=== PATIENT | female | born 1980 | race African-American/Black ===

== ENCOUNTER 2017-09-05 08:48 | Emergency (ER) | payer OTHER | END 2017-09-05 09:40 | disposition home or self-care (01) | LOC: ER 08:48 | DX: B34.9 Viral infection, unspecified (principal); J06.9 Acute upper respiratory infection, unspecified; G43.909 Migraine, unspecified, not intractable, without status migrainosus; Z88.0 Allergy status to penicillin; Z98.51 Tubal ligation status; Z88.5 Allergy status to narcotic agent; Z88.1 Allergy status to other antibiotic agents | CPT/HCPCS: 99283 ==

== ENCOUNTER 2017-09-10 08:03 | Emergency (ER) | payer OTHER ==
[2017-09-10] MEDS: ONDANSETRON ODT 4 MG TAB.RAPDIS. PO (08:34)
[2017-09-10] MEDS: HYDROcodone/CHLORPHEN POLIS 5 ML SUS.ER.12H PO (08:34)
== END 2017-09-10 09:59 | disposition home or self-care (01) ==
LOC: ER 09:59
DX: B34.9 Viral infection, unspecified (principal); G43.909 Migraine, unspecified, not intractable, without status migrainosus; Z88.5 Allergy status to narcotic agent; Z88.1 Allergy status to other antibiotic agents; Z88.0 Allergy status to penicillin; Z98.51 Tubal ligation status
CPT/HCPCS: 71046; 99284-25; Q0162

== ENCOUNTER 2018-01-06 00:56 | Emergency (ER) | payer OTHER | END 2018-01-06 01:25 | disposition home or self-care (01) | LOC: ER 00:56 | DX: L21.9 Seborrheic dermatitis, unspecified (principal); L25.9 Unspecified contact dermatitis, unspecified cause; Z88.0 Allergy status to penicillin; Z88.1 Allergy status to other antibiotic agents; Z88.5 Allergy status to narcotic agent | CPT/HCPCS: 99283 ==

== ENCOUNTER 2018-04-28 12:30 | Emergency (ER) | payer OTHER ==
[~2018-04-28] VITALS: Ht 160 cm; Wt 75.0 kg
[~2018-04-28 12:30] MED LIST: ACET325T9 PO; AMIT25TA PO; BENZ100C PO; HYDR15CR20 TP; HYDR5SUS PO; IBUP-1007 PO; KETO120S5 TP; NORG1TAB6 PO; ONDA4TAB10 SL; OSEL75CA PO; PROC5TAB14 PO; PROM25TA10 PO; SUMA25TA4 PO; [UNRECOGNIZED DRUG - CODE] PO
[2018-04-28 12:55] VITALS: BP 125/73
[2018-04-28] MEDS ORDERED: ONDA4TAB7 PO (13:12)
[2018-04-28] MEDS ORDERED: SUMA50TA3 PO (13:12)
--- NOTE | 2018-04-28 13:47 | PHYS DOC ---
Past Medical History Past Medical History: Migraines Past Surgical History: No Surgical History Additional Past Surgical Histo: D&C; oral surgery Alcohol Use: None Drug Use: None Adult General Chief Complaint Chief Complaint: PAIN CONTROL HPI HPI Patient is a 37 year old female who presents with migraine headaches. Patient has chronic migraine she takes amitriptyline for prevention however she has not been taking it recently because she gets home from work so late that she doesn' t want take it because she is worried she'll be groggy in the morning when she has to get up at 5 to take her kids to school. So she's had more frequent migraine headaches similar to usual priors mild to moderate in nature posterior throbbing radiates to the front has been using [id number] agents with minimal relief. Review of Systems Review of Systems Constitutional: Denies fever or chills [] Eyes: Denies change in visual acuity, redness, or eye pain [] HENT: Denies nasal congestion or sore throat [] GI: Denies abdominal pain, , vomiting, bloody stools or diarrhea [] : Denies dysuria or hematuria [] Integument: Denies rash or skin lesions [] Neurologic: Denies , focal weakness or sensory changes [] Endocrine: Denies polyuria or polydipsia [] All other systems were reviewed and found to be within normal limits, except as documented in this note. Allergies Allergies Allergies Coded Allergies Type Severity Reaction Last Updated Verified morphine Allergy Intermediate Vomiting 06/22/13 Yes Penicillins Allergy Unknown 06/22/13 Yes clindamycin Allergy Unknown 06/22/13 Yes Physical Exam Physical Exam Constitutional: Well developed, well nourished, no acute distress, non-toxic appearance. [] HENT: Normocephalic, atraumatic, bilateral external ears normal, oropharynx moist, no oral exudates, nose normal. [] Eyes: PERRLA, EOMI, conjunctiva normal, no discharge. [] Neck: Normal range of motion, no tenderness, supple, no stridor. [] Cardiovascular:Heart rate regular rhythm, no murmur [] Lungs & Thorax: Bilateral breath sounds clear to auscultation [] Abdomen: Bowel sounds normal, soft, no tenderness, no masses, no pulsatile masses. [] Skin: Warm, dry, no erythema, no rash. [] Back: No tenderness, no CVA tenderness. [] Extremities: No tenderness, no cyanosis, no clubbing, ROM intact, no edema. [] Neurologic: Alert and oriented X 3, normal motor function, normal sensory function, no focal deficits noted. [] Psychologic: Affect normal, judgement normal, mood normal. [] Current Patient Data Vital Signs Vital Signs Date Time Temp Pulse Resp B/P (MAP) Pulse Ox O2 Delivery O2 Flow Rate FiO2 04/28/18 12:55 98.0 102 18 125/73 (90) 98 Room Air 98.0 EKG EKG [] Radiology/Procedures Radiology/Procedures [] Course & Med Decision Making Course & Med Decision Making Pertinent Labs and Imaging studies reviewed. (See chart for details) []Well-appearing female requesting some better pain control that does make her as groggy for her migraines. Patient is neurologically intact in the emergency room . triptan cased nauseous in the past so we gave some Zofran as well. No red flags consistent with usual migraine pattern. Dragon Disclaimer Dragon Disclaimer This electronic medical record was generated, in whole or in part, using a voice recognition dictation system. Departure Departure Impression: Primary Impression: Migraine Disposition: 01 HOME, SELF-CARE Condition: STABLE Patient Instructions: Migraine Headache, [id number] Scripts Ondansetron Hcl (ZOFRAN) 4 Mg Tablet 4 MG PO PRN TID PRN for NAUSEA/VOMITING, #15 nausea/vomiting Prov: BRENDAN BORJA MD 04/28/18 Sumatriptan Succinate (IMITREX) 50 Mg Tablet 50 MG PO ONCE PRN for MIGRAINE HEADACHE, #10 TAB if no effect after two hours, may repeat dose x one. no more than two doses in a 24 hour period. Prov: BRENDAN BORJA MD 04/28/18 BRENDAN BORJA MD Apr 28, 2018 13:47
== END 2018-04-28 13:23 | disposition home or self-care (01) ==
LOC: ER 12:30
DX: G43.909 Migraine, unspecified, not intractable, without status migrainosus (principal); Z88.0 Allergy status to penicillin; Z88.1 Allergy status to other antibiotic agents; Z88.5 Allergy status to narcotic agent
CPT/HCPCS: 99283

== ENCOUNTER 2019-05-17 00:05 | Emergency (ER) | payer OTHER ==
[~2019-05-17] VITALS: Ht 160 cm; Wt 81.6 kg
[~2019-05-17 00:05] MED LIST changes: +ONDA4TAB7 PO; +SUMA50TA3 PO
[2019-05-17 00:26] VITALS: BP 137/88
[2019-05-17] MEDS ORDERED: AMOX1TAB61 PO (01:44)
[2019-05-17] MEDS ORDERED: CARB15DR23 EACH EAR (01:44)
[2019-05-17] MEDS ORDERED: MOME17SP NS (01:44)
--- NOTE | 2019-05-17 01:45 | PHYS DOC ---
Past Medical History Past Medical History: Migraines Past Surgical History: No Surgical History Additional Past Surgical Histo: D&C; oral surgery Alcohol Use: Occasionally Drug Use: None Adult General Chief Complaint Chief Complaint: EARACHE/EAR PAIN HPI HPI 38-year-old female presents to complaints of right ear pain, sore throat, nasal congestion, cough. She states is been ongoing times one day. Patient denies any fever. She denies any sick contacts. Nothing makes her pain worse, nothing makes her pain better. She states she's taken no medications [id number]. All other ROS negative unless documented in HPI Review of Systems Review of Systems See Above Allergies Allergies Allergies Coded Allergies Type Severity Reaction Last Updated Verified morphine Allergy Intermediate Vomiting 06/22/13 Yes Penicillins Allergy Unknown 06/22/13 Yes clindamycin Allergy Unknown 06/22/13 Yes Physical Exam Physical Exam See Above Constitutional: Well developed, well nourished, no acute distress, non-toxic appearance. [] HENT: Normocephalic, atraumatic, bilateral external ears normal - significant cerumen impaction bilaterally, oropharynx moist, no oral exudates, nose normal. [] Eyes: PERRLA, EOMI, conjunctiva normal, no discharge. [] Neck: Normal range of motion, no tenderness, supple, no stridor. [] Cardiovascular:Heart rate regular rhythm, no murmur [] Lungs & Thorax: Bilateral breath sounds clear to auscultation [] Abdomen: Bowel sounds normal, soft, no tenderness, no masses, no pulsatile masses. [] Skin: Warm, dry, no erythema, no rash. [] Extremities: No tenderness, no edema. [] Neurologic: Alert and oriented X 3, no focal deficits noted. [] Psychologic: Affect normal, judgement normal, mood normal. [] Current Patient Data Vital Signs Vital Signs Date Time Temp Pulse Resp B/P (MAP) Pulse Ox O2 Delivery O2 Flow Rate FiO2 05/17/19 00:26 98.1 89 18 137/88 (104) 97 Room Air 98.1 EKG EKG [] Radiology/Procedures Radiology/Procedures [] Course & Med Decision Making Course & Med Decision Making Pertinent Labs and Imaging studies reviewed. (See chart for details) []38-year-old female presents to complaints of right ear pain, sore throat, nasal congestion, cough. She states is been ongoing times one day. Patient denies any fever. She denies any sick contacts. Nothing makes her pain worse, nothing makes her pain better. She states she's taken no medications [id number]. Examination reveals evidence of bilateral cerumen impaction patient provided with debrox, nasonex, and augmentin Discussed use of OTC medications for symptomatic treatment Discussed return precautions Tylenol as needed for fever if develops Dragon Disclaimer Dragon Disclaimer This electronic medical record was generated, in whole or in part, using a voice recognition dictation system. Departure Departure Impression: Primary Impression: Ear pain Additional Impressions: Cerumen impaction Sore throat (viral) Disposition: HOME, SELF-CARE Condition: STABLE Referrals: UNKNOWN PCP NAME (PCP) Patient Instructions: Cerumen Impaction, Viral Pharyngitis Additional Instructions: Recommend follow up with PCP 3 - 5 days Return to the ER with worsening symptoms, intractable pain, fever, altered mental status Tylenol/Motrin as needed for pain Debrox drops ordered Augmentin rx provided Nasonex as needed Scripts Mometasone Furoate (NASONEX) 17 Gm Melvin.pump 2 SPRAY NS DAILY, #1 INHALER 5 Refills Prov: PRAFUL ROSS MD 05/17/19 Carbamide Peroxide (EAR WAX REMOVAL) 15 Ml Drops 5 DROP EACH EAR DAILY for 7 Days, #1 BOTTLE 0 Refills Prov: PRAFUL ROSS MD 05/17/19 Amoxicillin/Potassium Clav (AUGMENTIN 875-125 TABLET) 1 Each Tablet 1 TAB PO BID for 7 Days, #14 TAB 0 Refills Prov: PRAFUL ROSS MD 05/17/19 Problem Qualifiers Primary Impression: Ear pain Laterality: right Qualified Codes: H92.01 - Otalgia, right ear Additional Impressions: Cerumen impaction Laterality: right Qualified Codes: H61.21 - Impacted cerumen, right ear PRAFUL ROSS MD May 17, 2019 01:45
== END 2019-05-17 02:22 | disposition home or self-care (01) ==
LOC: ER 00:05
DX: H61.21 Impacted cerumen, right ear (principal); J02.8 Acute pharyngitis due to other specified organisms; B97.89 Other viral agents as the cause of diseases classified elsewhere; G43.909 Migraine, unspecified, not intractable, without status migrainosus; Z88.0 Allergy status to penicillin; Z88.1 Allergy status to other antibiotic agents; Z88.5 Allergy status to narcotic agent
CPT/HCPCS: 99283

== ENCOUNTER 2020-06-02 12:25 | Emergency (ER) | payer OTHER ==
[~2020-06-02] VITALS: Ht 160 cm; Wt 79.4 kg
[~2020-06-02 12:25] MED LIST changes: +AMOX1TAB61 PO; +CARB-171 EACH EAR; +MOME17SP NS
[2020-06-02 13:15] VITALS: BP 227/55
--- NOTE | 2020-06-02 13:34 | PHYS DOC ---
Past Medical History Past Medical History: Migraines Past Surgical History: No Surgical History Additional Past Surgical Histo: D&C; oral surgery Smoking Status: Current Every Day Smoker Alcohol Use: Occasionally Drug Use: None General Adult EDM: Chief Complaint: UPPER EXTREMITY PAIN HPI: HPI: Patient is a 39 year old female presents to the emergency room for evaluation of acute on chronic left shoulder pain. She reports she usually takes muscle relaxers to help with her shoulder pain but it is not helping recently. She denies any injury or recent trauma. She has pain with range of motion to the left shoulder. She denies chest pain or shortness of air, fever, or numbness or tingling. Review of Systems: Review of Systems: Constitutional: Denies fever or chills. [] Eyes: Denies change in visual acuity. [] HENT: Denies nasal congestion or sore throat. [] Respiratory: Denies cough or shortness of breath. [] Cardiovascular: Denies chest pain or edema. [] GI: Denies abdominal pain, nausea, vomiting, bloody stools or diarrhea. [] : Denies dysuria. [] Musculoskeletal: Reports left shoulder pain, decreased range of motion [] Integument: Denies rash. [] Neurologic: Denies headache, focal weakness or sensory changes. [] Endocrine: Denies polyuria or polydipsia. [] Lymphatic: Denies swollen glands. [] Psychiatric: Denies depression or anxiety. [] Heart Score: Risk Factors: Risk Factors: DM, Current or recent (<one month) smoker, HTN, HLP, family history of CAD, obesity. Risk Scores: Score 0 - 3: 2.5% MACE over next 6 weeks - Discharge Home Score 4 - 6: 20.3% MACE over next 6 weeks - Admit for Clinical Observation Score 7 - 10: 72.7% MACE over next 6 weeks - Early Invasive Strategies Current Medications: Current Medications Medications (Trade) Dose Ordered Sig/[facility] Start Time Stop Time Status Last Admin Dose Admin Ketorolac Tromethamine (Toradol 15mg Vial) 30 mg 1X ONCE 06/02/20 13:30 06/02/20 13:31 UNV Allergies: Allergies: Allergies Coded Allergies Type Severity Reaction Last Updated Verified morphine Allergy Intermediate Vomiting 06/22/13 Yes Penicillins Allergy Unknown 06/22/13 Yes clindamycin Allergy Unknown 06/22/13 Yes Physical Exam: PE: Constitutional: Well developed, well nourished, no acute distress, non-toxic appearance. [] HENT: Normocephalic, atraumatic, bilateral external ears normal, oropharynx moist, no oral exudates, nose normal. [] Eyes: PERRLA, EOMI, conjunctiva normal, no discharge. [] Neck: Normal range of motion, no tenderness, supple, no stridor. [] Skin: Warm, dry, no erythema, no rash. [] Back: No tenderness, no CVA tenderness. [] Extremities: Left shoulder joint tender to palpation, decreased active range of motion, able to perform passive range of motion with less pain to the joint. Extremity is neurovascular intact, pulses equal bilaterally [] Neurologic: Alert and oriented X 3, normal motor function, normal sensory function, no focal deficits noted. [] Psychologic: Affect normal, judgement normal, mood normal. [] Current Patient Data: Vital Signs: Vital Signs Date Time Temp Pulse Resp B/P (MAP) Pulse Ox O2 Delivery O2 Flow Rate FiO2 06/02/20 13:15 99.1 100 18 227/55 (112) 98 99.1 EKG: EKG: [] Radiology/Procedures: Radiology/Procedures: [REASON: PAIN, DECREASED ROM, NO INJURY PROCEDURE: SHOULDER 2+V LEFT EXAM: 3 Views Left Shoulder DATE: 06/02/2020 1:09 PM INDICATION: Reason: PAIN, DECREASED ROM, NO INJURY / Spl. Instructions: / History: COMPARISON: No Prior FINDINGS: There is no evidence for acute fracture or dislocation. AC joint is congruent. Amorphous calcifications of old left greater tuberosity likely calcific tendinosis/tendinitis. Humeral head is not high riding. IMPRESSION: 1. No acute fracture or dislocation. 2. Amorphous calcifications of old left greater tuberosity likely calcific tendinosis/tendinitis. Electronically signed by: Martir Patricia MD (06/02/2020 1:44 PM) [facility] Course & Med Decision Making: Course & Med Decision Making Pertinent Labs and Imaging studies reviewed. (See chart for details) [] Dragon Disclaimer: Dragon Disclaimer: This electronic medical record was generated, in whole or in part, using a voice recognition dictation system. Departure Departure Impression: Primary Impression: Tendinitis Disposition: 01 DC HOME SELF CARE/HOMELESS Referrals: MELBA ODOM MD Patient Instructions: Tendinitis Scripts Prednisone (PREDNISONE) 50 Mg Tablet 1 TAB PO DAILY, #5 TAB Prov: ROSSY HAYWARD APRN 06/02/20 ROSSY HAYWARD APRN Jun 02, 2020 13:33
[2020-06-02] MEDS ORDERED: KETOROLAC 30 MG/ML VIAL. IM ONE (13:45)
--- NOTE | 2020-06-02 13:47 | RAD ---
EXAM: 3 Views Left Shoulder DATE: 06/02/2020 1:09 PM INDICATION: Reason: PAIN, DECREASED ROM, NO INJURY / Spl. Instructions: / History: COMPARISON: No Prior FINDINGS: There is no evidence for acute fracture or dislocation. AC joint is congruent. Amorphous calcifications of old left greater tuberosity likely calcific tendinosis/tendinitis. Humeral head is not high riding. IMPRESSION: 1. No acute fracture or dislocation. 2. Amorphous calcifications of old left greater tuberosity likely calcific tendinosis/tendinitis. Electronically signed by: Martir Patricia MD (06/02/2020 1:44 PM) [facility]
[2020-06-02] MEDS ORDERED: PRED50TA PO (14:11)
== END 2020-06-02 14:45 | disposition home or self-care (01) ==
LOC: ER 12:25
DX: M75.92 Shoulder lesion, unspecified, left shoulder (principal); G89.29 Other chronic pain; G43.909 Migraine, unspecified, not intractable, without status migrainosus; F17.200 Nicotine dependence, unspecified, uncomplicated; Z88.0 Allergy status to penicillin; Z88.1 Allergy status to other antibiotic agents; Z88.5 Allergy status to narcotic agent
CPT/HCPCS: 73030; 96372; 99283; J1885

== ENCOUNTER 2020-09-08 16:26 | Emergency (ER) | payer MEDICAID, OTHER ==
[~2020-09-08] VITALS: Ht 160 cm; Wt 78.2 kg
[~2020-09-08 16:26] MED LIST changes: +PRED50TA PO
[2020-09-08 16:57] VITALS: BP 138/74
[2020-09-08] MEDS ORDERED: cefTRIAXone IM 500 MG VIAL. IM ONE (17:30)
[2020-09-08] MEDS ORDERED: AZITHROMYCIN 250 MG TABLET. PO ONE (17:30)
[2020-09-08 17:53] LABS: U PREG PATIENT NEGATIVE (NEG)
[2020-09-08] MEDS ORDERED: METR-34 PO (17:54)
--- NOTE | 2020-09-08 17:55 | PHYS DOC ---
Past Medical History Past Medical History: Depression, Migraines Past Surgical History: No Surgical History, Tubal ligation Additional Past Surgical Histo: D&C; oral surgery Smoking Status: Current Every Day Smoker Alcohol Use: Occasionally Drug Use: None General Adult EDM: Chief Complaint: VAGINAL PROBLEM HPI: HPI: Patient is a 39 year old female who presents with vaginal irritation and itching for the last 2 days. She states she is also had this milky discharge. She denies any kind of foul smell. Patient would like to be treated and checked for STDs today. Patient denies abdominal pain, nausea, vomiting, diarrhea, back pain, urinary symptoms, chest pain, shortness of breath, fever. She does have a history of depression, migraine, D&C and she is a smoker. Review of Systems: Review of Systems: Constitutional: Denies fever or chills. [] Eyes: Denies change in visual acuity. [] HENT: Denies nasal congestion or sore throat. [] Respiratory: Denies cough or shortness of breath. [] Cardiovascular: Denies chest pain or edema. [] GI: Denies abdominal pain, nausea, vomiting, bloody stools or diarrhea. [] : Denies dysuria. + Vaginal discharge and itching [] Musculoskeletal: Denies back pain or joint pain. [] Integument: Denies rash. [] Neurologic: Denies headache, focal weakness or sensory changes. [] Endocrine: Denies polyuria or polydipsia. [] Lymphatic: Denies swollen glands. [] Psychiatric: Denies depression or anxiety. [] Heart Score: C/O Chest Pain: No Risk Factors: Risk Factors: DM, Current or recent (<one month) smoker, HTN, HLP, family history of CAD, obesity. Risk Scores: Score 0 - 3: 2.5% MACE over next 6 weeks - Discharge Home Score 4 - 6: 20.3% MACE over next 6 weeks - Admit for Clinical Observation Score 7 - 10: 72.7% MACE over next 6 weeks - Early Invasive Strategies Current Medications: Current Medications Medications (Trade) Dose Ordered Sig/[facility] Start Time Stop Time Status Last Admin Dose Admin Azithromycin (Zithromax) 1,000 mg 1X ONCE 09/08/20 17:30 09/08/20 17:31 DC Ceftriaxone Sodium (Rocephin Im) 500 mg 1X ONCE 09/08/20 17:30 09/08/20 17:31 DC Allergies: Allergies: Allergies Coded Allergies Type Severity Reaction Last Updated Verified morphine Allergy Intermediate Vomiting 06/22/13 Yes Penicillins Allergy Unknown 06/22/13 Yes clindamycin Allergy Unknown 06/22/13 Yes Physical Exam: PE: Constitutional: Well developed, well nourished, no acute distress, non-toxic appearance. [] HENT: Normocephalic, atraumatic, bilateral external ears normal, oropharynx moist, no oral exudates, nose normal. [] Eyes: PERRLA, EOMI, conjunctiva normal, no discharge. [] Neck: Normal range of motion, no tenderness, supple, no stridor. [] Cardiovascular:Heart rate regular rhythm, no murmur [] Lungs & Thorax: Bilateral breath sounds clear to auscultation [] Abdomen: Bowel sounds normal, soft, no tenderness, no masses, no pulsatile masses. [] Skin: Warm, dry, no erythema, no rash. [] Back: No tenderness, no CVA tenderness. [] Extremities: No tenderness, no cyanosis, no clubbing, ROM intact, no edema. [] Neurologic: Alert and oriented X 3, normal motor function, normal sensory function, no focal deficits noted. [] Psychologic: Affect normal, judgement normal, mood normal. Normal physical exam [] Current Patient Data: Vital Signs: Vital Signs Date Time Temp Pulse Resp B/P (MAP) Pulse Ox O2 Delivery O2 Flow Rate FiO2 09/08/20 16:57 98.1 58 16 138/74 (95) 100 Room Air 98.1 EKG: EKG: [] Radiology/Procedures: Radiology/Procedures: [] Course & Med Decision Making: Course & Med Decision Making Pertinent Labs and Imaging studies reviewed. (See chart for details) See HPI. Abdomen is soft and nontender. Patient denies any pain. Ambulatory with a steady gait. Speaks in full clear sentences. Afebrile. Patient is treated with Rocephin and azithromycin in the ED. 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 She will be placed on metronidazole. DragiCopyright Disclaimer: Veronica Disclaimer: This electronic medical record was generated, in whole or in part, using a voice recognition dictation system. Departure Departure Impression: Primary Impression: Infection due to trichomonas Additional Impression: Sexually transmissible disease Disposition: 01 DC HOME SELF CARE/HOMELESS Condition: STABLE Referrals: UNKNOWN PCP NAME (PCP) NEENA BONE Jr, MD Patient Instructions: Sexually Transmitted Disease, Trichomoniasis Additional Instructions: Follow-up with your primary care provider or backing in machine tender. Take medication as prescribed and with food. Do not have sex for 10 days after you complete treatment. Make sure you do not drink any alcohol on this medication as it will make you vomit. Scripts Metronidazole (METRONIDAZOLE) 500 Mg Tablet 1 TAB PO BID for 7 Days, #14 TAB 0 Refills Prov: MARCELA CLEMENT APRN 09/08/20 MARCELA CLEMENT APRN Sep 08, 2020 17:55
[2020-09-08 18:24] LABS: BILIRUBIN,URINE NEGATIVE (NEG); CLARITY,URINE CLEAR; COLOR,URINE YELLOW; NITRITE,URINE NEGATIVE (NEG); PH,URINE 8.5 (<5.0-8.0); PROTEIN,URINE NEGATIVE (NEG-TRACE)
[2020-09-08 18:34] LABS: TRICHOMONAS,URINE PRESENT
[2020-09-08 18:37] LABS: BACTERIA,URINE FEW /HPF (0-FEW)
== END 2020-09-08 19:03 | disposition home or self-care (01) ==
LOC: ER 16:26
DX: A59.01 Trichomonal vulvovaginitis (principal); F32.9 Major depressive disorder, single episode, unspecified; G43.909 Migraine, unspecified, not intractable, without status migrainosus; F17.200 Nicotine dependence, unspecified, uncomplicated; Z98.51 Tubal ligation status; Z98.890 Other specified postprocedural states
CPT/HCPCS: 81001; 81025; 87086; 87491; 87591; 96372; 99284; J0696; Q0111

== ENCOUNTER 2020-10-02 00:26 | Emergency (ER) | payer MEDICAID ==
[~2020-10-02] VITALS: Ht 160 cm; Wt 172.0 kg
[~2020-10-02 00:26] MED LIST changes: +METR-34 PO
[2020-10-02] MEDS ORDERED: METR500T PO (04:26)
--- NOTE | 2020-10-02 04:27 | PHYS DOC ---
Past Medical History Past Medical History: Depression, Migraines Past Surgical History: No Surgical History, Tubal ligation Additional Past Surgical Histo: D&C; oral surgery Smoking Status: Former Smoker Alcohol Use: None Drug Use: None General Adult EDM: Chief Complaint: VAGINAL PROBLEM HPI: HPI: 40-year-old female past medical history of depression, presents to the ED with complaints of abnormal vaginal discharge stating "my lips are itching," describes external vulvar area. Denies associated rash or blistering lesions. States she was tested positive and treated for trichomonas in August. Reports she is currently on her menses. Review of Systems: Review of Systems: Constitutional: Denies fever or chills. [] Eyes: Denies change in visual acuity. [] HENT: Denies nasal congestion or sore throat. [] Respiratory: Denies cough or shortness of breath. [] Cardiovascular: Denies chest pain or edema. [] GI: Denies abdominal pain, nausea, vomiting, bloody stools or diarrhea. [] : Denies dysuria or increased urinary frequency Musculoskeletal: Denies back pain or joint pain. [] Integument: Denies rash. Or diaphoresis Neurologic: Denies headache, focal weakness or sensory changes. [] Endocrine: Denies polyuria or polydipsia. [] Lymphatic: Denies swollen glands. [] Psychiatric: Denies depression or anxiety. [] Heart Score: C/O Chest Pain: No Risk Factors: Risk Factors: DM, Current or recent (<one month) smoker, HTN, HLP, family history of CAD, obesity. Risk Scores: Score 0 - 3: 2.5% MACE over next 6 weeks - Discharge Home Score 4 - 6: 20.3% MACE over next 6 weeks - Admit for Clinical Observation Score 7 - 10: 72.7% MACE over next 6 weeks - Early Invasive Strategies Allergies: Allergies: Allergies Coded Allergies Type Severity Reaction Last Updated Verified morphine Allergy Intermediate Vomiting 06/22/13 Yes Penicillins Allergy Unknown 06/22/13 Yes clindamycin Allergy Unknown 06/22/13 Yes Physical Exam: PE: Constitutional: Well developed, well nourished, no acute distress, non-toxic appearance. HENT: Normocephalic, atraumatic, Eyes: EOMI, conjunctiva normal, no discharge. Neck: Normal range of motion, supple, Cardiovascular: S1/2 present, regular rhythm Lungs & Thorax: Speaking in full sentences, bilateral equal chest rise, no tachypnea or increased work of breathing Abdomen: soft, no tenderness, Skin: Warm, dry, no erythema, no rash. [] Back: No tenderness, no CVA tenderness. [] Extremities: No tenderness, no cyanosis, no lower extremity edema Neurologic: Alert and oriented X 3, normal motor function, normal sensory function, no focal deficits noted. [] Psychologic: Affect normal, judgement normal, mood normal. [] Pelvic: Declined by patient Current Patient Data: Labs: Laboratory Tests Test 10/02/20 02:10 POC Urine HCG, Qualitative Hcg negative (Negative) Microbiology 10/02/20 Wet Prep - Final, Complete Vital Signs: Vital Signs Date Time Temp Pulse Resp B/P (MAP) Pulse Ox O2 Delivery O2 Flow Rate FiO2 10/02/20 00:45 97.9 76 14 101/69 (80) 99 Room Air 97.9 EKG: EKG: [] Radiology/Procedures: Radiology/Procedures: [] Course & Med Decision Making: Course & Med Decision Making Pertinent Labs and Imaging studies reviewed. (See chart for details) Concern for pruritic vaginal discharge, wet prep consistent with bacterial vaginosis. Recommend local health department for routine STI testing including blood-borne illnesses. Patient hemodynamically stable nontoxic-appearing. Will discharge home with strict ED return precautions were given for fever, or worsening abdominal pain, heavy vaginal bleeding. Encouraged urgent outpatient follow-up with PMD and BOX FIN[facility] as needed. Life-threatening processes were considered but are low suspicion at this time, given history, physical exam and ED workup. Pt was educated on all prescription medications and adverse effects. All patient's questions were answered and pt was stable at time of discharge. Life/limb-threatening differential includes but is not limited to, ectopic , septic , sepsis/infection (endometritis, sti/pid, cystitis, pyelonephritis, Bethel's gangrene or necrotizing fasciitis, abscess), ovarian torsion, ruptured hemorrhagic ovarian cyst, endometriosis, ureterolithiasis, thrombophlebitis, hemorrhage/DIC, organ prolapse, abdominal aortic aneurysm, mesenteric ischemia, neoplasm, bowel obstruction or surgical abdomen. I spoken with the patient and her caregivers. I explained the patient's condition, diagnoses and treatment plan based on the information available to me at this time. I have answered the patient and her caregiver's questions and addressed any concerns. The patient and her caregivers have a good understanding of patient's diagnosis, condition and treatment plan as can be expected at this point. Vital signs have been stable. Patient's condition is stable and appropriate for discharge from the emergency department. Patient will pursue further outpatient evaluation with primary care physician or other designated or consulting physician as outlined in the discharge instructions. The patient and/or caregivers are agreeable to this plan of care and follow-up instructions have been explained in detail. The patient and/or caregivers have received these instructions in written form and have expressed an understanding of the discharge instructions. The patient and/or caregivers are aware that any significant change of condition or worsening of symptoms should prompt immediate return to this or the closest emergency department or call to 911. Veronica Disclaimer: Veronica Disclaimer: This electronic medical record was generated, in whole or in part, using a voice recognition dictation system. Departure Departure Impression: Primary Impression: Bacterial vaginosis Disposition: 01 DC HOME SELF CARE/HOMELESS Condition: STABLE Referrals: NO PCP (PCP) Follow-up with your family medicine physician in 24 to 48 hours or FOLLOW UP WITH FAMILY MEDICINE: Family Medicine Address: [address] [place] [address] Phone: [phone] Patient Instructions: Bacterial Vaginosis Additional Instructions: FOLLOW UP WITH BOX FINISHER: [facility] Address: [address], [facility] [address] [place] [address] EMERGENCY DEPARTMENT GENERAL DISCHARGE INSTRUCTIONS Thank you for coming to [facility] Emergency Department (ED) today and trusting us with you care. We trust that you had a positive experience in our Emergency Department. If you wish to speak to the department management, you may call the Director at [phone]. YOUR FOLLOW UP INSTRUCTIONS ARE FOLLOWS: 1. Do you have a private Doctor? If you do not have a private doctor, please ask for a resource list of physicians or clinics that may be able to assist you with follow up care. 2. The Emergency Physicain has interpreted your x-rays. The X-Ray specialist will also review them. If there is a change in the findings, you will be notified in 48 hours when at all possible. 3. A lab test or culture has been done, your results will be reviewed and you will be notified if you need a change in treatment. ADDITIONAL INSTRUCTIONS AND INFORMATION: 1. Your care today has been supervised by a physician who is specially trained in emergency care. Many problems require more than one evaluation for a complete diagnosis and treatment. We recommend that you schedule your follow up appointment as recommended to ensure complete treatment of you illness or injury. If you are unable to obtain follow up care and continue to have a problem, or if your condition worsens, we recommend that you return to the ED. 2. We are not able to safely determine your condition over the phone nor are we able to give sound medical advice over the phone. For these safety reasons, if you call for medical advice we will ask you to come to the ED for further evaluation. 3. If you have any questions regarding these discharge instructions please call the ED at [phone]. SAFETY INFORMATION: In the interest of safety, wellness, and injury prevention; we encourage you to wear your sealbelt, if you smoke; quite smoking, and we encourage family to use a protective helmet for bicycling and other sporting events that present an increased risk for head injury. IF YOUR SYMPTOMS WORSEN OR NEW SYMPTOMS DEVELOP, OR YOU HAVE CONCERNS ABOUT YOUR CONDITION; OR IF YOUR CONDITION WORSENS WHILE YOU ARE WAITING FOR YOUR FOLLOW UP APPOINTMENT; EITHER CONTACT YOUR PRIMARY CARE DOCTOR, THE PHYSICIAN WHOSE NAME AND NUMBER YOU WERE GIVEN, OR RETURN TO THE ED IMMEDIATELY. Scripts Metronidazole (FLAGYL) 500 Mg Tablet 1 TAB PO BID for 7 Days, #14 TAB Prov: SIXTO ROY DO 10/02/20 SIXTO ROY DO Oct 02, 2020 04:27
[2020-10-02 04:30] VITALS: BP 114/78
== END 2020-10-02 04:55 | disposition home or self-care (01) ==
LOC: ER 00:26
DX: N76.0 Acute vaginitis (principal); B96.89 Other specified bacterial agents as the cause of diseases classified elsewhere; F32.9 Major depressive disorder, single episode, unspecified; G43.909 Migraine, unspecified, not intractable, without status migrainosus; Z87.891 Personal history of nicotine dependence; Z98.51 Tubal ligation status; Z98.890 Other specified postprocedural states; Z88.0 Allergy status to penicillin; Z88.6 Allergy status to analgesic agent; Z88.1 Allergy status to other antibiotic agents
CPT/HCPCS: 81025; 99283; Q0111